=== PATIENT | male | born 1960 | race African-American/Black ===

== ENCOUNTER 2016-09-28 22:29 | Emergency (ER) | payer MEDICAID ==
[~2016-09-28] VITALS: Ht 182.9 cm; Wt 63.5 kg
[~2016-09-28 22:29] MED LIST: NKM
[2016-09-28 22:50] VITALS: BP 147/86
[2016-09-28] MEDS ORDERED: Carbamide Peroxide 6.5% Ot Sol 15ML RIGHT EAR STA (23:04)
--- NOTE | 2016-09-29 01:43 | Emergency Room Report ---
History of Present Illness General Chief Complaint: Earache Source: Patient Present Illness HPI He has earwax in his right ear. Was trying to remove it but pushed it further into the canal. He's had some mild pain there and decrease in his hearing. No fever or URI sy. No NVD. A year ago he needed to have his earwax removed here. No dizziness. Allergies: Coded Allergies: No Known Allergies (Unverified , 08/12/15) Patient History Past Medical History: see triage record Social History: Denies: smoking Social History Narrative home Reviewed Nursing Documentation: PMH: Agreed, PSxH: Agreed Nursing Documentation-PMH Past Medical History: No Stated History Review of Systems Constitutional: Denies: fever Eye: Reports: see HPI, Denies: blurred vision ENT: Reports: see HPI Respiratory: Denies: cough Cardiovascular: Denies: chest pain Gastrointestinal: Denies: abdominal pain, vomiting Skin: Denies: rash Neurological: Denies: headache Physical Exam Vital Signs Date Time Temp Pulse Resp B/P Pulse Ox O2 Delivery O2 Flow Rate FiO2 09/28/16 22:44 98.1 62 16 147/86 98 Room Air Sp02 EP Interpretation: reviewed, normal General Appearance: well appearing, no apparent distress Head: normocephalic, atraumatic ENT: normal pharynx, normal voice, other - cerumen impaction R, L normal Neck: full range of motion, supple Respiratory: no respiratory distress, speaking full sentences Musculoskeletal: digits/nails normal, gait/station normal Neurologic: alert, normal gait, grossly normal Psychiatric: mood/affect normal Skin: no rash Medical Decision Making Diagnostic Impression: Primary Impression: Cerumen impaction Qualified Codes: H61.21 - Impacted cerumen, right ear ER Course Patient with cerumen impaction. Need to remove and reassess for OM. Irrigation ordered. Patient improved after removal of the cerumen. Slight inflammation of canal. Last Vital Signs Date Time Temp Pulse Resp B/P Pulse Ox O2 Delivery O2 Flow Rate FiO2 09/29/16 02:00 98.1 68 14 141/81 99 Room Air Status: improved Disposition: HOME, SELF-CARE Condition: Improved Hoang Estrella M.D. Sep 29, 2016 01:43
[2016-09-29 01:50] VITALS: BP 141/81
[2016-09-29 02:00] VITALS: BP 141/81
== END 2016-09-29 02:00 | disposition home or self-care (01) ==
LOC: EMR 23:00
DX: H61.21 Impacted cerumen, right ear (principal)
CPT/HCPCS: 69210; 99282

== ENCOUNTER 2019-04-03 02:13 | Emergency (ER) | payer MEDICAID ==
[~2019-04-03] VITALS: Ht 190.5 cm; Wt 90.7 kg
[2019-04-03 02:40] VITALS: BP 137/89
--- NOTE | 2019-04-03 02:40 | NUR ---
ED Nurse Note: Pt walked into ED from home for c/o n/v/d and abdominal pain. Pt states pain and n/v/d started 3 days ago after eating at a restaurant and pt is concerned he has food poisoning or the "stomach flu". Pt states pain is cramping in nature, but no severe. Pt also reports a few episodes of feeling lightheaeded/dizzy. Pt is aaox4, no cardiac or respiratory distress noted.
--- NOTE | 2019-04-03 02:50 | Emergency Room Report ---
History of Present Illness General Chief Complaint: Nausea, Vomiting, and Diarrhea Source: Patient Present Illness HPI Disclaimer: Please note that this report is being documented using [employer] technology. This can lead to erroneous entry secondary to incorrect interpretation by the dictating instrument. HPI: 58-year-old male presents for evaluation of vomiting and abdominal cramping. Symptoms began 3 days ago. He ate at a diner with a friend after which he developed some upper abdominal cramping, 1 day of diarrhea and persistent vomiting. He was unable to hold down any food until yesterday afternoon. He is now able to eat and drink. He still feels nauseous and abdominal cramping in the upper abdomen. Denies fever chills, chest pain, shortness of breath, cough, dysuria, hematuria. Diarrhea is now resolved. He wanted to make sure that it was not food poisoning. Has been using Maalox and Pepto-Bismol at home with some effect. PMH: Denies PSH: Denies Allergies: Denies Social Hx: Denies Allergies: Coded Allergies: No Known Allergies (Unverified , 08/12/15) Nursing Documentation-PMH Past Medical History: No Stated History Review of Systems All Other Systems: negative except mentioned in HPI Physical Exam Vital Signs Date Time Temp Pulse Resp B/P (MAP) Pulse Ox O2 Delivery O2 Flow Rate FiO2 04/03/19 02:27 98.1 70 18 137/89 (105) 96 Room Air General: Awake and alert, no acute distress HEENT: NC/AT. EOMI. Cardiovascular: RRR. S1 and S2 normal. No murmur appreciated Resp: Normal work of breathing. No cough, wheezing or crackles appreciated Abdomen: Abdomen is soft, nondistended. Mild tenderness in the epigastrium. Negative Hayward's. No masses. Abdomen otherwise nontender without rebound. Skin: Intact. No abrasions, laceration or rash over the exposed skin MSK: Normal tone and bulk. Moving all extremities. No obvious deformity. Neuro: Awake and alert. Mentating appropriately. Medical Decision Making Diagnostic Impression: Primary Impression: Gastroenteritis ER Course Otherwise healthy 58-year-old male presents for evaluation of vomiting abdominal cramping. Differential includes was not limited to gastritis, gastroenteritis, viral syndrome, pancreatitis, cholecystitis to name a few. He is well-appearing, diarrhea is resolving, no longer vomiting but still complaining of nausea and cramping. Likely a viral syndrome which will treat with Zofran, famotidine, GI cocktail. He is able to rehydrate orally. Will check screening labs but little concern for significant intra-abdominal pathology at this time. Exam is benign. He is well-appearing with stable vital signs. Laboratory Tests Test 04/03/19 02:50 White Blood Count 7.8 K/UL (4.8-10.8) Red Blood Count 4.64 M/UL (4.70-6.10) L Hemoglobin 14.6 G/DL (14.2-18.0) Hematocrit 42.1 % (42.0-52.0) Mean Corpuscular Volume 91 FL (80-99) Mean Corpuscular Hemoglobin 31.4 PG (27.0-31.0) H Mean Corpuscular Hemoglobin Concent 34.6 G/DL (32.0-36.0) Red Cell Distribution Width 11.4 % (11.6-14.8) L Platelet Count 275 K/UL (150-450) Mean Platelet Volume 6.3 FL (6.5-10.1) L Neutrophils (%) (Auto) 69.7 % (45.0-75.0) Lymphocytes (%) (Auto) 22.2 % (20.0-45.0) Monocytes (%) (Auto) 6.0 % (1.0-10.0) Eosinophils (%) (Auto) 1.1 % (0.0-3.0) Basophils (%) (Auto) 0.9 % (0.0-2.0) Urine Color Pale yellow Urine Appearance Clear Urine pH 5 (4.5-8.0) Urine Specific [place] 1.020 (1.005-1.035) Urine Protein Negative (NEGATIVE) Urine Glucose (UA) Negative (NEGATIVE) Urine Ketones Negative (NEGATIVE) Urine Blood Negative (NEGATIVE) Urine Nitrite Negative (NEGATIVE) Urine Bilirubin Negative (NEGATIVE) Urine Urobilinogen Normal MG/DL (0.0-1.0) Urine Leukocyte Esterase Negative (NEGATIVE) Sodium Level 143 MMOL/L (136-145) Potassium Level 4.1 MMOL/L (3.5-5.1) Chloride Level 106 MMOL/L (98-107) Carbon Dioxide Level 31 MMOL/L (21-32) Anion Gap 6 mmol/L (5-15) Blood Urea Nitrogen 12 mg/dL (7-18) Creatinine 1.1 MG/DL (0.55-1.30) Estimate Glomerular Filtration Rate > 60 mL/min (>60) Glucose Level 113 MG/DL (74-106) H Calcium Level 9.0 MG/DL (8.5-10.1) Total Bilirubin 0.3 MG/DL (0.2-1.0) Aspartate Amino Transferase (AST) 26 U/L (15-37) Alanine Aminotransferase (ALT) 42 U/L (12-78) Alkaline Phosphatase 99 U/L (46-116) Total Protein 8.0 G/DL (6.4-8.2) Albumin 4.1 G/DL (3.4-5.0) Globulin 3.9 g/dL Albumin/Globulin Ratio 1.1 (1.0-2.7) Lipase 153 U/L (73-393) Reevaluation Time: 03:28 Last Vital Signs Date Time Temp Pulse Resp B/P (MAP) Pulse Ox O2 Delivery O2 Flow Rate FiO2 04/03/19 02:27 98.1 70 18 137/89 (105) 96 Room Air Reevaluation Impression Labs unremarkable. Patient tolerating oral hydration. Likely a viral gastroenteritis that appears to be passing. We will continue to treat symptomatically with Zofran and Pepcid. Patient stable for outpatient follow- up. Will discharge and instructed follow-up with PMD within the next few days. Discussed reasons to return to the emergency department. He understands and agrees with this treatment plan. Disposition: HOME, SELF-CARE Condition: Stable Scripts Famotidine* (Pepcid 20mg tablet*) 20 Mg Tablet 20 MG ORAL DAILY, #30 TAB 0 Refills Prov: Sandro Hernández MD 04/03/19 Ondansetron Odt* (ZOFRAN ODT*) 4 Mg Tab.rapdis 4 MG BC EVERY 6 HOURS PRN for Nausea & Vomiting, #10 TAB 0 Refills Prov: Sandro Hernández MD 04/03/19 Referrals: NOT CHOSEN [facility]/,REFERRING (PCP) Sandro Hernández MD Apr 03, 2019 02:50
[2019-04-03] MEDS ORDERED: ONDANSETRON ODT4 MG BC (02:51)
[2019-04-03] MEDS ORDERED: FAMOTIDINE20 MG ORAL (02:51)
[2019-04-03] MEDS ORDERED: Lidocaine 2% Visc 15ml soln ORAL ONE (03:00)
[2019-04-03] MEDS ORDERED: Dicyclomine HCl 10mg/5ml oral soln ORAL ONE (03:00)
[2019-04-03] MEDS ORDERED: Mylanta II UD 30ml ORAL ONE (03:00)
[2019-04-03 03:04] LABS: APPEARANCE,URINE CLEAR; BILIRUBIN, URINE NEGATIVE (NEGATIVE); COLOR,URINE PALE YELLOW; GLUCOSE, URINE (UA) NEGATIVE (NEGATIVE); KETONES,URINE NEGATIVE (NEGATIVE); LEUKOCYTE ESTERASE ,URINE NEGATIVE (NEGATIVE); NITRITE,URINE NEGATIVE (NEGATIVE); PH,URINE 5 (4.5-8.0); PROTEIN,URINE NEGATIVE (NEGATIVE); UROBILINOGEN,URINE NORMAL MG/DL (0.0-1.0)
[2019-04-03 03:05] LABS: BASOPHILS % (AUTO) 0.9 % (0.0-2.0); EOSINOPHILS % (AUTO) 1.1 % (0.0-3.0); HEMATOCRIT 42.1 % (42.0-52.0); HEMOGLOBIN 14.6 G/DL (14.2-18.0); LYMPHOCYTES % (AUTO) 22.2 % (20.0-45.0); MEAN CORPUSCULAR VOLUME 91 FL (80-99); NEUTROPHILS % (AUTO) 69.7 % (45.0-75.0); PLATELET COUNT 275 K/UL (150-450); RED BLOOD COUNT 4.64 M/UL (4.70-6.10); RED CELL DISTRIBUTION WIDTH 11.4 % (11.6-14.8); WHITE BLOOD COUNT 7.8 K/UL (4.8-10.8)
[2019-04-03 03:15] LABS: ANION GAP 6 mmol/L (5-15); BLOOD UREA NITROGEN 12 mg/dL (7-18); CARBON DIOXIDE 31 MMOL/L (21-32); CHLORIDE 106 MMOL/L (98-107); CREATININE 1.1 MG/DL (0.55-1.30); POTASSIUM 4.1 MMOL/L (3.5-5.1); SODIUM 143 MMOL/L (136-145)
[2019-04-03 03:19] LABS: ALANINE AMINOTRANSFERASE 42 U/L (12-78); ALBUMIN 4.1 G/DL (3.4-5.0); ALBUMIN/GLOBULIN RATIO 1.1 (1.0-2.7); ALKALINE PHOSPHATASE 99 U/L (46-116); ASPARTATE AMINO TRANSFERASE 26 U/L (15-37); BILIRUBIN,TOTAL 0.3 MG/DL (0.2-1.0)
[2019-04-03 03:30] VITALS: BP 130/75
--- NOTE | 2019-04-03 03:30 | NUR ---
ER DISCHARGE NOTE: Patient is cleared to be discharged per ERMD, pt is aox4, on room air, with stable vital signs. pt was given dc and prescription instructions, pt was able to verbalize understanding, pt id band and iv site removed without complications. pt is able to ambulate with steady gait. pt took all belongings.
== END 2019-04-03 03:30 | disposition home or self-care (01) ==
LOC: EMR 02:37
DX: K52.9 Noninfective gastroenteritis and colitis, unspecified (principal)
CPT/HCPCS: 36415; 80053; 81003; 83690; 85025; 96374; 96375; J2405; S0028; Z7502; 99284